=== PATIENT | female | born 1940 | race Caucasian/White ===

== ENCOUNTER → 2019-11-13 10:55 | Outpatient (BNVA) | payer MEDICARE, SELFPAY | PROVIDERS: Family Provider Family Medicine; PCP Family Medicine; Visit Provider Nurse Practitioner Family | DX: E03.9 Hypothyroidism, unspecified (principal); I10 Essential (primary) hypertension; E55.9 Vitamin D deficiency, unspecified; R53.83 Other fatigue; E78.5 Hyperlipidemia, unspecified; Z90.89 Acquired absence of other organs | CPT/HCPCS: 80053; 80061; 82306; 84439; 84443; 85025 ==

== ENCOUNTER → 2020-06-07 09:31 | Outpatient (BNVA) | payer MEDICARE, SELFPAY | PROVIDERS: Family Provider Family Medicine; PCP Family Medicine; Visit Provider Nurse Practitioner Family | DX: Z20.822 Contact with and (suspected) exposure to COVID-19 (principal) | CPT/HCPCS: 87635 ==

== ENCOUNTER → 2021-01-06 10:50 | Outpatient (BNVA) | payer MEDICARE, SELFPAY | PROVIDERS: Family Provider Family Medicine; PCP Family Medicine; Visit Provider Family Medicine | DX: E03.9 Hypothyroidism, unspecified (principal); I10 Essential (primary) hypertension; E55.9 Vitamin D deficiency, unspecified | CPT/HCPCS: 36415; 80053; 80061; 84439; 84443; 85025 ==

== ENCOUNTER → 2022-02-27 09:27 | Outpatient (BNVA) | payer MEDICARE, SELFPAY | PROVIDERS: Family Provider Family Medicine; PCP Family Medicine; Visit Provider Nurse Practitioner Family | DX: I10 Essential (primary) hypertension (principal); E55.9 Vitamin D deficiency, unspecified; E03.9 Hypothyroidism, unspecified; M25.511 Pain in right shoulder; Z68.23 Body mass index [BMI] 23.0-23.9, adult; Z23 Encounter for immunization | CPT/HCPCS: 80053; 80061; 82306; 84443 ==

== ENCOUNTER 2022-03-23 06:00 | Outpatient (RCR) | payer MEDICARE, SELFPAY | END 2022-03-27 23:59 | disposition home or self-care (01) | LOC: GPT 06:00 | PROVIDERS: PCP Family Medicine; Visit Provider Orthopaedic Surgery | DX: M75.41 Impingement syndrome of right shoulder (principal) | CPT/HCPCS: 97110; 97140; 97161 ==

== ENCOUNTER 2022-03-28 06:00 | Outpatient (RCR) | payer MEDICARE, SELFPAY | END 2022-04-26 23:59 | disposition home or self-care (01) | LOC: GPT 06:00 | PROVIDERS: PCP Family Medicine; Visit Provider Orthopaedic Surgery | DX: M75.41 Impingement syndrome of right shoulder (principal) | CPT/HCPCS: 97110; 97140 ==

== ENCOUNTER → 2022-04-11 11:04 | Outpatient (BNVA) | payer MEDICARE, SELFPAY | PROVIDERS: PCP Family Medicine; Visit Provider Nurse Practitioner Family | DX: R79.9 Abnormal finding of blood chemistry, unspecified (principal) | CPT/HCPCS: 80048 ==

== ENCOUNTER → 2022-05-11 09:11 | Outpatient (BNVA) | payer MEDICARE, SELFPAY | PROVIDERS: PCP Family Medicine; Visit Provider Nurse Practitioner Family | DX: R79.9 Abnormal finding of blood chemistry, unspecified (principal) | CPT/HCPCS: 80048 ==

== ENCOUNTER 2022-05-30 06:00 | Outpatient (RCR) | payer MEDICARE, SELFPAY | END 2022-06-27 23:59 | disposition home or self-care (01) | LOC: GPT 06:00 | PROVIDERS: PCP Family Medicine; Visit Provider Orthopaedic Surgery | DX: M50.33 Other cervical disc degeneration, cervicothoracic region (principal); M48.02 Spinal stenosis, cervical region; M54.12 Radiculopathy, cervical region | CPT/HCPCS: 97110; 97112; 97140; 97161; 97530 ==

== ENCOUNTER 2022-06-28 06:00 | Outpatient (RCR) | payer MEDICARE, SELFPAY | END 2022-07-25 23:59 | disposition home or self-care (01) | LOC: GPT 06:00 | PROVIDERS: PCP Family Medicine; Visit Provider Orthopaedic Surgery | DX: M50.33 Other cervical disc degeneration, cervicothoracic region (principal); M48.02 Spinal stenosis, cervical region; M54.12 Radiculopathy, cervical region | CPT/HCPCS: 97110; 97112; 97140; 97530 ==

== ENCOUNTER 2022-07-26 06:00 | Outpatient (RCR) | payer MEDICARE, SELFPAY | END 2022-08-25 23:59 | disposition home or self-care (01) | LOC: GPT 06:00 | PROVIDERS: PCP Family Medicine; Visit Provider Orthopaedic Surgery | DX: M50.33 Other cervical disc degeneration, cervicothoracic region (principal); M48.02 Spinal stenosis, cervical region; M54.12 Radiculopathy, cervical region | CPT/HCPCS: 97110; 97140; 97530; 97535 ==

== ENCOUNTER → 2023-02-27 15:37 | Outpatient (BNVA) | payer MEDICARE, SELFPAY | PROVIDERS: PCP Family Medicine; Visit Provider Nurse Practitioner Family | DX: I10 Essential (primary) hypertension (principal); E55.9 Vitamin D deficiency, unspecified; E03.9 Hypothyroidism, unspecified; Z23 Encounter for immunization | CPT/HCPCS: 80053; 80061; 82306; 84443 ==

== ENCOUNTER → 2023-07-30 10:04 | Outpatient (BNVA) | payer MEDICARE, SELFPAY | PROVIDERS: PCP Family Medicine; Visit Provider Nurse Practitioner Family | DX: M79.644 Pain in right finger(s) (principal) | CPT/HCPCS: 73130 ==

== ENCOUNTER → 2024-02-06 11:30 | Outpatient (BNVA) | payer MEDICARE, SELFPAY | PROVIDERS: PCP Family Medicine; Visit Provider Nurse Practitioner Family | DX: I10 Essential (primary) hypertension (principal); E55.9 Vitamin D deficiency, unspecified; E03.9 Hypothyroidism, unspecified | CPT/HCPCS: 80053; 80061; 82306; 84443 ==

== ENCOUNTER → 2024-04-02 10:00 | Outpatient (BNVA) | payer MEDICARE, SELFPAY | PROVIDERS: PCP Nurse Practitioner Family; Visit Provider Nurse Practitioner Family | DX: R07.81 Pleurodynia (principal); Z98.890 Other specified postprocedural states; M95.4 Acquired deformity of chest and rib; Q25.46 Tortuous aortic arch; J98.4 Other disorders of lung | CPT/HCPCS: 71046; 71100 ==

== ENCOUNTER → 2024-07-28 15:00 | Outpatient (BNVA) | payer MEDICARE, SELFPAY | PROVIDERS: PCP Nurse Practitioner Family; Visit Provider Nurse Practitioner Family | DX: M54.6 Pain in thoracic spine (principal) | CPT/HCPCS: 80053; 80061 ==

== ENCOUNTER → 2024-07-31 10:29 | Outpatient (BNVA) | payer MEDICARE, SELFPAY | PROVIDERS: PCP Nurse Practitioner Family; Visit Provider Orthopaedic Surgery | DX: M54.6 Pain in thoracic spine (principal); G89.29 Other chronic pain; M54.2 Cervicalgia | CPT/HCPCS: 72050; 72072; 99204 ==

== ENCOUNTER 2024-08-11 12:20 | Outpatient (RCR) | payer MEDICARE, SELFPAY | END 2024-08-25 23:59 | disposition home or self-care (01) | LOC: GPT 12:20 | PROVIDERS: PCP Nurse Practitioner Family; Visit Provider Orthopaedic Surgery | DX: M54.2 Cervicalgia (principal); M54.6 Pain in thoracic spine; G89.29 Other chronic pain | CPT/HCPCS: 97110; 97112; 97140; 97161 ==

== ENCOUNTER 2024-08-26 05:00 | Outpatient (RCR) | payer MEDICARE, SELFPAY | END 2024-09-24 23:59 | disposition home or self-care (01) | LOC: GPT 05:00 | PROVIDERS: PCP Nurse Practitioner Family; Visit Provider Orthopaedic Surgery | DX: M54.2 Cervicalgia (principal); M54.6 Pain in thoracic spine; G89.29 Other chronic pain | CPT/HCPCS: 97110; 97112; 97140 ==

== ENCOUNTER → 2024-09-11 10:24 | Outpatient (BNVA) | payer MEDICARE, SELFPAY | PROVIDERS: PCP Nurse Practitioner Family; Visit Provider Orthopaedic Surgery | DX: M54.2 Cervicalgia (principal); M54.6 Pain in thoracic spine; G89.29 Other chronic pain | CPT/HCPCS: 99213 ==

== ENCOUNTER 2024-09-16 10:00 | Outpatient (CLI) | payer MEDICARE, SELFPAY ==
--- NOTE | 2024-09-16 10:15 | MR_ITS ---
WS: [id number] MRI CERVICAL SPINE NONCONTRAST HISTORY: cervical pain COMPARISON: None available. Technique: Multiplanar, multisequence noncontrast imaging of the cervical spine. Mild increase in cervical lordosis. No vertebral body fracture. Craniocervical junction is normal. Signal within the cervical cord is normal. Visualized posterior fossa is unremarkable. Craniocervical junction, C1 and C2 relationship, odontoid process and soft tissues are normal. C2-C3: Normal. C3-C4: Small central disc protrusion. Mild osteophytic ridging and facet arthritis. Bilateral moderate facet joint arthropathy, RIGHT greater than LEFT. Slightly more edema within the RIGHT facets. Mild bilateral foraminal stenosis. C4-C5: Small central disc protrusion. Mild foraminal stenosis and facet arthritis. C5-C6: Small central disc protrusion with mild osteophytic ridging and facet arthritis. Mild foraminal stenosis. C6-C7: Normal. C7-T1: Normal. Paraspinal soft tissue are normal. MR/MR cervical spin wo con* [id number] IMPRESSION: 1. No cord signal abnormality. 2. No high-grade central or foraminal stenosis. 3. C4-5: Small central disc protrusion and osteophytic ridging. Moderate bilat eral facet joint arthropathy, RIGHT greater than LEFT. Mild foraminal stenosis. 4. Small central disc protrusions at C4-5 and C5-6 with mild foraminal narrowi ng.
--- NOTE | 2024-09-16 11:00 | MR_ITS ---
WS: [id number] MRI THORACIC SPINE noncontrast HISTORY: possible thoracic fx COMPARISON: Radiograph 07/31/2024 TECHNIQUE: Multiplanar sequences are performed in sagittal and axial planes. Mild increase in thoracic kyphosis. Vertebral body heights and disc spaces are well-maintained. No fractures identified. Signal within the cord is normal. T9 hemangioma. L1 retrolisthesis by 5 mm. No central disc protrusions or cord contact. Mild diffuse facet joint arthropathy. No high-grade foraminal stenosis. Mild bilateral foraminal stenosis at C6-7, C7-8, T8-9, T9-10 and T10-11. Bilateral renal cysts. MR/MR thoracic spin wo con* [id number] IMPRESSION: 1. No marrow edema or acute thoracic spine fracture. 2. Very mild increase in thoracic kyphosis. 3. Normal signal within the thoracic cord.
== END 2024-09-16 10:01 | disposition home or self-care (01) ==
LOC: RAD 10:02
PROVIDERS: PCP Nurse Practitioner Family; Visit Provider Orthopaedic Surgery
DX: M48.02 Spinal stenosis, cervical region (principal); M50.21 Other cervical disc displacement, high cervical region; M25.78 Osteophyte, vertebrae; M47.892 Other spondylosis, cervical region; M50.221 Other cervical disc displacement at C4-C5 level; M50.222 Other cervical disc displacement at C5-C6 level; R93.7 Abnormal findings on diagnostic imaging of other parts of musculoskeletal system; M40.294 Other kyphosis, thoracic region; D18.09 Hemangioma of other sites; M43.16 Spondylolisthesis, lumbar region; M47.894 Other spondylosis, thoracic region; M48.04 Spinal stenosis, thoracic region; N28.1 Cyst of kidney, acquired
CPT/HCPCS: 72141; 72146

== ENCOUNTER → 2024-10-02 10:50 | Outpatient (BNVA) | payer MEDICARE, SELFPAY | PROVIDERS: PCP Nurse Practitioner Family; Visit Provider Orthopaedic Surgery | DX: Z09 Encounter for follow-up examination after completed treatment for conditions other than malignant neoplasm (principal) | CPT/HCPCS: 99214 ==

== ENCOUNTER → 2024-10-21 12:42 | Outpatient (BNVA) | payer MEDICARE, SELFPAY | PROVIDERS: PCP Nurse Practitioner Family; Referring Provider Orthopaedic Surgery; Visit Provider Nurse Practitioner Family | DX: M54.6 Pain in thoracic spine (principal); G89.29 Other chronic pain; M54.12 Radiculopathy, cervical region | CPT/HCPCS: 99214 ==

== ENCOUNTER → 2024-11-18 10:57 | Outpatient (BNVA) | payer MEDICARE, SELFPAY | PROVIDERS: PCP Nurse Practitioner Family; Visit Provider Nurse Practitioner Family | DX: M54.6 Pain in thoracic spine (principal); G89.29 Other chronic pain; M54.12 Radiculopathy, cervical region | CPT/HCPCS: 99214 ==

== ENCOUNTER → 2025-01-30 08:49 | Outpatient (BNVA) | payer MEDICARE, SELFPAY | PROVIDERS: PCP Nurse Practitioner Family; Visit Provider Nurse Practitioner Family | DX: I10 Essential (primary) hypertension (principal); E55.9 Vitamin D deficiency, unspecified; E03.9 Hypothyroidism, unspecified | CPT/HCPCS: 80053; 80061; 82306; 84443; 85025 ==

== ENCOUNTER → 2025-02-25 10:44 | Outpatient (BNVA) | payer MEDICARE, SELFPAY | PROVIDERS: PCP Nurse Practitioner Family; Visit Provider Nurse Practitioner Family | DX: M54.12 Radiculopathy, cervical region (principal); M54.6 Pain in thoracic spine; G89.29 Other chronic pain | CPT/HCPCS: 99214 ==

== ENCOUNTER → 2025-03-04 13:53 | Outpatient (BNVA) | payer MEDICARE, SELFPAY | PROVIDERS: PCP Nurse Practitioner Family; Visit Provider Anesthesiology Pain Medicine | DX: M79.18 Myalgia, other site (principal); M54.2 Cervicalgia; M54.6 Pain in thoracic spine; G89.29 Other chronic pain; M54.12 Radiculopathy, cervical region | CPT/HCPCS: 20553; 99214 ==

== ENCOUNTER → 2025-03-18 13:14 | Outpatient (BNVA) | payer MEDICARE, SELFPAY | PROVIDERS: PCP Nurse Practitioner Family; Visit Provider Nurse Practitioner Family | DX: M54.12 Radiculopathy, cervical region (principal); M47.892 Other spondylosis, cervical region; M54.6 Pain in thoracic spine; G89.29 Other chronic pain | CPT/HCPCS: 99214 ==